=== PATIENT | male | born 1990 | race Caucasian/White ===

== ENCOUNTER 2024-11-30 14:27 | Emergency (ER) | payer OTHER ==
[~2024-11-30] VITALS: Ht 188 cm; Wt 88.0 kg
[2024-11-30 14:29] VITALS: BP 126/62; PULSE 80; RESP 16; TEMP 36.8; O2SAT 98
[2024-11-30] MEDS: KETOROLAC 30MG/ML VIAL IM ONE (15:40)
[2024-11-30] MEDS: HYDROCODONE/ACETAMINOPHEN 5/325MG TABLET PO ONE (15:40)
[2024-11-30] MEDS: METHOCARBAMOL 750MG TABLET PO SCH (15:41)
[2024-11-30 16:48] LABS: CLARITY URINE CLEAR (CLEAR); COLOR URINE YELLOW (YELLOW); GLUCOSE URINE NEGATIVE (NEGATIVE); KETONES URINE TRACE (NEGATIVE); LEUKOCYTE ESTERASE URINE NEGATIVE (NEGATIVE); NITRITE URINE NEGATIVE (NEGATIVE); OCCULT BLOOD URINE NEGATIVE (NEGATIVE); PROTEIN URINE TRACE (NEGATIVE); SPECIFIC GRAVITY URINE 1.037 (1.005-1.030)
[2024-11-30 17:12] LABS: RBC URINE NONE SEEN /hpf (0-2); WBC URINE 0-2 /hpf (0-2)
[2024-11-30 17:13] LABS: BACTERIA URINE TRACE; SQUAMOUS EPITHELIAL CELL URINE NONE SEEN /lpf (RARE/1+)
[2024-11-30] MEDS ORDERED: LIDO700A15 TP (17:42)
[2024-11-30] MEDS ORDERED: METH-653 MT (17:42)
[2024-11-30] MEDS ORDERED: IBUP-2029 MT (17:42)
== END 2024-11-30 18:03 | disposition home or self-care (01) ==
LOC: ER 14:27
DX: M54.50 Low back pain, unspecified (principal)
CPT/HCPCS: 99284; 81003; 72100; 96372; J1885